=== PATIENT | female | born 1970 | race Caucasian/White ===

== ENCOUNTER 2018-06-23 19:20 | Emergency (ER) | payer BC ==
[2018-06-23 22:59] LABS: ADD MAN DIFF? NO
[2018-06-23 23:02] LABS: BASOPHIL # 0.1 10^3/ul (0.0-0.1); BASOPHILS % 0.5 % (0.0-2.0); EOSINOPHILS # 0.2 10^3/ul (0.0-0.5); EOSINOPHILS % 2.1 % (0.0-7.0); HEMATOCRIT 42.6 % (37.0-47.0); MEAN CORPUSCULAR HEMOGLOBIN 28.7 pg (29.0-33.0); MEAN CORPUSCULAR HGB CONC 35.2 g/dl (32.0-37.0); MEAN CORPUSCULAR VOLUME 81.5 fl (82.0-101.0); MEAN PLATELET VOLUME 9.7 fl (7.4-10.4); MONOCYTE # 0.6 10^3/ul (0.3-0.9); MONOCYTES % 5.9 % (0.0-11.0); PLATELET COUNT 309 10^3/UL (140-415); RED BLOOD COUNT 5.23 10^6/ul (4.20-5.40)
[2018-06-23 23:02] LABS: WHITE BLOOD COUNT 10.9 10^3/ul (4.8-10.8)
[2018-06-23 23:03] LABS: ADD UMIC YES; UR ASCORBIC ACID NEGATIVE (NEGATIVE); UR BACTERIA FEW /HPF (NONE SEEN); UR BILIRUBIN (Dip) NEGATIVE (NEGATIVE); UR BLOOD (Dip) NEGATIVE (NEGATIVE); UR CLARITY CLEAR (CLEAR); UR COLOR YELLOW (YELLOW); UR GLUCOSE (Dip) 3+ mg/dL (NEGATIVE); UR KETONES (Dip) 2+ mg/dL (NEGATIVE); UR LEUKOCYTE ESTERASE (Dip) NEGATIVE Leu/ul (NEGATIVE); UR NITRITE (Dip) NEGATIVE (NEGATIVE); UR RBC 1 /HPF (0-5); UR SPECIFIC GRAVITY (Dip) 1.021 (1.003-1.030); UR TOTAL PROTEIN (Dip) 1+ mg/dl (NEGATIVE); UR UROBILINOGEN (Dip) NEGATIVE (NEGATIVE); UR WBC 3 /HPF (0-5)
[2018-06-23] MEDS: IOHEXOL 300MG/ML 150 ML BTL (23:10)
[2018-06-23] MEDS: SOD CHLORIDE 0.9% 100 ML (23:10)
[2018-06-23 23:13] LABS: HEMOGLOBIN A1C 9.9 % (0-5.9)
[2018-06-23] MEDS: LORAZEPAM 2 MG INJ IV (23:17)
[2018-06-23 23:22] LABS: ANION GAP 11 (5-13); BLOOD UREA NITROGEN 13 mg/dl (7-20); CALCIUM 8.9 mg/dl (8.4-10.2); CARBON DIOXIDE 32 mmol/L (21-31); CHLORIDE 94 mmol/L (97-110); CHOLESTEROL 168 mg/dl (100-200); CREATININE 0.49 mg/dl (0.44-1.00); Estimated GFR > 60 mL/min (>60); GLUCOSE 270 mg/dl (70-220); HDL CHOLESTEROL 28 mg/dl (34-88); LDL CHOLESTEROL,CALCULATED 82 mg/dl; POTASSIUM 3.3 mmol/L (3.5-5.1); SODIUM 137 mmol/L (135-144); TRIGLYCERIDES 291 mg/dl (0-149)
[2018-06-23 23:23] LABS: INR 0.98; PROTIME 13.1 Sec (11.9-14.9)
[2018-06-23 23:24] LABS: PARTIAL THROMBOPLASTIN TIME 27.8 Sec (23.0-35.0)
[2018-06-23 23:33] LABS: TROPONIN-I < 0.012 ng/ml (0.000-0.120)
[2018-06-24] MEDS: KETOROLAC 30 MG INJ IV (00:17)
[2018-06-24 00:21] LABS: AMPHETAMINE/METHAMPHETAMINE Negative (NEGATIVE); BARBITURATES Negative (NEGATIVE); BENZODIAZEPINES Negative (NEGATIVE); CANNABINOIDS Negative (NEGATIVE); COCAINE Negative (NEGATIVE); OPIATES Negative (NEGATIVE)
== END 2018-06-24 00:35 | disposition home or self-care (01) ==
LOC: E/R 06-24 00:35
DX: I16.0 Hypertensive urgency (principal); R47.81 Slurred speech; E11.9 Type 2 diabetes mellitus without complications; M54.2 Cervicalgia; Z79.82 Long term (current) use of aspirin; Z87.891 Personal history of nicotine dependence
CPT/HCPCS: 36415; 70450; 70496; 70498; 80048; 80061; 80307; 81001; 81025; 82962; 83036; 84484; 85025; 85610; 85730; 93005; 96374; 96375; 99285-25